=== PATIENT | male | born 1935 ===

== ENCOUNTER 2017-01-06 11:20 | Emergency (ER) | payer MEDICARE, BC, MEDICAID, OTHER ==
[2017-01-06] MEDS ORDERED: SODIUM CHLORIDE 0.9% 500 ML 500 ML IV ONE (12:17)
[2017-01-06] MEDS ORDERED: SODIUM CHLORIDE 0.9% FLUSH 10 ML SOL IV PRN (12:21)
[2017-01-06 12:50] VITALS: TEMP 96.7
[2017-01-06 12:50] LABS: ALBUMIN 2.9 gm/dl (3.4-5.0); CALCIUM 8.2 mg/dl (8.5-10.1); POTASSIUM 4.4 mMol/L (3.5-5.1)
[2017-01-06 12:55] LABS: BASOPHILS % (AUTO) 1 % (0-3); EOSINOPHILS % (AUTO) 5 % (0-9); HEMATOCRIT 28 % (39-53); MEAN CORPUSCULAR HGB CONC 34.3 gm/dl (32.0-36.0); MEAN CORPUSCULAR VOLUME 82 fL (80-100); MONOCYTES % (AUTO) 7.7 % (0-12); NEUTROPHILS % (AUTO) 67.2 % (37-80)
[2017-01-06 13:22] VITALS: BP 122/61; PULSE 63; RESP 21; O2SAT 99
== END 2017-01-06 15:04 | DRG 605 ==
LOC: ED 11:20
DX: S00.83XA Contusion of other part of head, initial encounter (principal); N19 Unspecified kidney failure; I11.0 Hypertensive heart disease with heart failure; I50.9 Heart failure, unspecified; W19.XXXA Unspecified fall, initial encounter
CPT/HCPCS: 36415; 70450; 72125; 72131; 80053; 83880; 85025; 93005; 96365; 99282; 99285

== ENCOUNTER 2017-01-09 18:08 | Emergency (ER) | payer MEDICARE, BC, MEDICAID, OTHER ==
[2017-01-09 19:12] VITALS: RESP 16
[2017-01-09 19:31] VITALS: TEMP 95.6
[2017-01-09 19:37] VITALS: BP 113/61; PULSE 54; O2SAT 97
== END 2017-01-09 20:19 | DRG 605 ==
LOC: ED 18:08
DX: S01.01XA Laceration without foreign body of scalp, initial encounter (principal); S09.90XA Unspecified injury of head, initial encounter; W18.30XA Fall on same level, unspecified, initial encounter
CPT/HCPCS: 12001; 70450; 72125; 99285

== ENCOUNTER 2017-02-11 12:16 | Emergency (ER) | payer MEDICARE, BC, MEDICAID, OTHER ==
[2017-02-11 13:13] VITALS: TEMP 97.4; O2SAT 100
[2017-02-11 13:48] LABS: HEMATOCRIT 28 % (39-53); MEAN CORPUSCULAR HGB CONC 34.6 gm/dl (32.0-36.0); MEAN CORPUSCULAR VOLUME 82 fL (80-100)
[2017-02-11 13:50] LABS: CALCIUM 8.3 mg/dl (8.5-10.1); POTASSIUM 4.3 mMol/L (3.5-5.1)
[2017-02-11 14:16] LABS: BASOPHILS % (MANUAL) 0 % (0-3); EOSINOPHILS % (MANUAL) 12 % (0-9); LYMPHOCYTES % (MANUAL) 20 % (10-50)
[2017-02-11 14:17] LABS: ANISOCYTOSIS SLIGHT AMT; OVALOCYTES PRESENT
[2017-02-11 14:42] LABS: APPEARANCE,URINE Clear; BILIRUBIN,URINE NEGATIVE (NEGATIVE); COLOR,URINE Yellow; GLUCOSE, URINE (UA) NEGATIVE (NEGATIVE); KETONES,URINE NEGATIVE (NEGATIVE); LEUKOCYTE ESTERASE ,URINE TRACE (NEGATIVE); NITRATE,URINE NEGATIVE (NEGATIVE); OCCULT BLOOD,URINE TRACE INTACT (NEG-TRACE); UROBILINOGEN,URINE 0.2 (0.2-1.0 EU)
[2017-02-11 14:54] LABS: RBC,URINE 0-1 (0-3AV/HPF); WBC,URINE 0-4 (0-5AV/HPF)
[2017-02-11 15:23] VITALS: BP 122/61; PULSE 59; RESP 18
== END 2017-02-11 14:30 | DRG 882 ==
LOC: ED 12:16
DX: F43.24 Adjustment disorder with disturbance of conduct (principal)
CPT/HCPCS: 80048; 81001; 85007; 85027; 99283

== ENCOUNTER 2017-02-20 21:27 | Emergency (ER) | payer MEDICARE, BC, MEDICAID, OTHER ==
[2017-02-20 21:39] VITALS: TEMP 97.3
[2017-02-20] MEDS: ACETAMINOPHEN 325 MG PO ONE (22:05)
[2017-02-20] MEDS ORDERED: ACETAMINOPHEN 325 MG ONE (22:05)
[2017-02-20 22:23] LABS: BASOPHILS % (AUTO) 1 % (0-3); EOSINOPHILS % (AUTO) 10 % (0-9); HEMATOCRIT 27 % (39-53); MEAN CORPUSCULAR HGB CONC 33.5 gm/dl (32.0-36.0); MONOCYTES % (AUTO) 6.9 % (0-12); NEUTROPHILS % (AUTO) 57.6 % (37-80)
[2017-02-20 22:30] LABS: MEAN CORPUSCULAR VOLUME 81 fL (80-100)
[2017-02-20 22:34] LABS: CALCIUM 8.1 mg/dl (8.5-10.1); POTASSIUM 4.8 mMol/L (3.5-5.1)
[2017-02-20] MEDS: OXYCODONE HYDROCHLORIDE 10 MG TER PO SCH (23:00)
[2017-02-20] MEDS ORDERED: HYDROMORPHONE HCL 2 MG/ML 1 ML SOL ONE (23:07)
[2017-02-20] MEDS: HYDROMORPHONE HCL 2 MG/ML 1 ML SOL IM ONE (23:10)
[2017-02-20 23:33] VITALS: BP 114/62; PULSE 60; RESP 16; O2SAT 98
== END 2017-02-20 23:50 | DRG 93 ==
LOC: ED 21:27
DX: G89.29 Other chronic pain (principal); F32.9 Major depressive disorder, single episode, unspecified; M54.9 Dorsalgia, unspecified; R53.1 Weakness; F41.9 Anxiety disorder, unspecified
CPT/HCPCS: 36415; 80048; 85025; 93005; 96372; 99284; 99285; J1170

== ENCOUNTER 2017-08-20 19:16 | Inpatient (IN) | payer MEDICARE, BC, MEDICAID, OTHER ==
[2017-08-20 20:07] LABS: BASOPHILS % (AUTO) 1 % (0-3); EOSINOPHILS % (AUTO) 3 % (0-9); HEMATOCRIT 27 % (39-53); MEAN CORPUSCULAR HGB CONC 33.5 gm/dl (32.0-36.0); MEAN CORPUSCULAR VOLUME 89 fL (80-100); MONOCYTES % (AUTO) 5.6 % (0-12); NEUTROPHILS % (AUTO) 71.6 % (37-80)
[2017-08-20 20:07] LABS: APPEARANCE,URINE Clear; BILIRUBIN,URINE NEGATIVE (NEGATIVE); COLOR,URINE Yellow; GLUCOSE, URINE (UA) NEGATIVE (NEGATIVE); KETONES,URINE NEGATIVE (NEGATIVE); LEUKOCYTE ESTERASE ,URINE 1+ (NEGATIVE); NITRATE,URINE NEGATIVE (NEGATIVE); OCCULT BLOOD,URINE NEGATIVE (NEG-TRACE); UROBILINOGEN,URINE 0.2 (0.2-1.0 EU)
[2017-08-20 20:17] LABS: ALBUMIN 2.7 gm/dl (3.4-5.0); ALT 24 IU/L (14-63); CALCIUM 8.1 mg/dl (8.5-10.1); GLOM FILT RATE 14 mL/min (>60); POTASSIUM 5.2 mMol/L (3.5-5.1); SODIUM 146 mMol/L (136-145); THYROID STIMULATING HORMONE 3.539 uIU/ml (0.358-3.740)
[2017-08-20 20:17] LABS: RBC,URINE 0-1 (0-3AV/HPF); WBC,URINE 20-30 (0-5AV/HPF)
[2017-08-20] MEDS: SODIUM CHLORIDE 0.9% 1000ML 1,000 ML IV SCH (20:18)
[2017-08-20] MEDS ORDERED: LIDOCAINE HCL 1% MPF SOL ONE (21:27)
[2017-08-20] MEDS ORDERED: CEFTRIAXONE 1 GM PDS IM SCH (21:30)
[2017-08-20] MEDS: LACTULOSE 10 GM/15 ML SOL PO SCH (21:31)
[2017-08-20] MEDS ORDERED: CALCIUM CARBONATE 500 MG TAB PO PRN (22:45)
[2017-08-20] MEDS ORDERED: ACETAMINOPHEN PO PRN (22:45)
[2017-08-20] MEDS ORDERED: OXYCODONE HCL PO PRN (22:45)
[2017-08-21] MEDS: LEVOTHYROXINE SODIUM 50 MCG TAB PO SCH (06:13)
[2017-08-21 08:10] LABS: BASOPHILS % (AUTO) 1 % (0-3); EOSINOPHILS % (AUTO) 5 % (0-9); HEMATOCRIT 25 % (39-53); MEAN CORPUSCULAR VOLUME 89 fL (80-100); MONOCYTES % (AUTO) 6.7 % (0-12); NEUTROPHILS % (AUTO) 61.7 % (37-80)
[2017-08-21 08:27] LABS: CALCIUM 7.7 mg/dl (8.5-10.1); POTASSIUM 4.5 mMol/L (3.5-5.1)
[2017-08-21] MEDS: SODIUM CHLORIDE 0.9% 1000ML 1,000 ML IV SCH (09:00)
[2017-08-21] MEDS ORDERED: SENNOSIDES A AND B 8.6 MG TAB PO SCH (09:00)
[2017-08-21] MEDS ORDERED: PANTOPRAZOLE SODIUM 20 MG PO SCH (09:00)
[2017-08-21] MEDS: LACTULOSE 10 GM/15 ML SOL PO SCH (09:30)
[2017-08-21] MEDS ORDERED: DEXTROSE/SALINE 0.45% 1,000 ML IV SCH (09:30)
[2017-08-21] MEDS: ASPIRIN 81 MG CHEWABLE CTB PO SCH (10:43)
[2017-08-21] MEDS: TAMSULOSIN HYDROCHLORIDE 0.4 MG CAP PO SCH (10:44)
[2017-08-21] MEDS: MAGNESIUM OXIDE 400 MG TAB PO SCH (10:44)
[2017-08-21] MEDS: MULTIVITAMIN2 1 EA TAB PO SCH (10:45)
[2017-08-21] MEDS: ATENOLOL 25 MG TAB PO SCH (10:45)
[2017-08-21] MEDS: OLANZAPINE 2.5 MG TAB PO SCH (10:46)
[2017-08-21] MEDS: CHOLECALCIFEROL 1,000 IU TAB PO SCH (10:46)
[2017-08-21] MEDS: SERTRALINE HYDROCHLORIDE 50 MG TAB PO SCH (10:46)
[2017-08-21] MEDS: SODIUM CHLORIDE 0.45% 1000 ML 1,000 ML IV SCH (11:45)
[2017-08-21] MEDS: PANTOPRAZOLE SODIUM 40 MG ECT PO SCH (14:00)
[2017-08-21] MEDS: CYANOCOBALAMIN 1000 MCG PO SCH (14:42)
[2017-08-21] MEDS: FINASTERIDE 5 MG PO SCH (14:43)
[2017-08-21] MEDS ORDERED: CEFTRIAXONE 1 GM PDS ONE (21:25)
[2017-08-21] MEDS ORDERED: SODIUM CHLORIDE 0.9% 100 ML 100 ML IV ONE (21:25)
[2017-08-21] MEDS: CEFTRIAXONE 1 GM PDS 1 GM in SODIUM CHLORIDE 0.9% 100 ML 100 ML IV SCH (21:30)
[2017-08-22] MEDS: SODIUM CHLORIDE 0.45% 1000 ML 1,000 ML IV SCH ×2 (00:19→16:11)
[2017-08-22] MEDS: ACETAMINOPHEN 325 MG PO PRN ×3 (02:10→22:37)
[2017-08-22] MEDS: LEVOTHYROXINE SODIUM 50 MCG TAB PO SCH (06:05)
[2017-08-22 07:17] LABS: CALCIUM 7.5 mg/dl (8.5-10.1); POTASSIUM 4.5 mMol/L (3.5-5.1)
[2017-08-22 07:34] LABS: BASOPHILS % (AUTO) 1 % (0-3); EOSINOPHILS % (AUTO) 5 % (0-9); HEMATOCRIT 22 % (39-53); MEAN CORPUSCULAR HGB CONC 34.6 gm/dl (32.0-36.0); MEAN CORPUSCULAR VOLUME 88 fL (80-100); MONOCYTES % (AUTO) 4.6 % (0-12); NEUTROPHILS % (AUTO) 67.7 % (37-80)
[2017-08-22] MEDS: MAGNESIUM OXIDE 400 MG TAB PO SCH (08:36)
[2017-08-22] MEDS: SERTRALINE HYDROCHLORIDE 50 MG TAB PO SCH (08:36)
[2017-08-22] MEDS: MULTIVITAMIN2 1 EA TAB PO SCH (08:36)
[2017-08-22] MEDS: CHOLECALCIFEROL 1,000 IU TAB PO SCH (08:36)
[2017-08-22] MEDS: ASPIRIN 81 MG CHEWABLE CTB PO SCH (08:36)
[2017-08-22] MEDS: PANTOPRAZOLE SODIUM 40 MG ECT PO SCH (08:36)
[2017-08-22] MEDS: OLANZAPINE 2.5 MG TAB PO SCH (08:36)
[2017-08-22] MEDS: TAMSULOSIN HYDROCHLORIDE 0.4 MG CAP PO SCH (08:36)
[2017-08-22] MEDS: ATENOLOL 25 MG TAB PO SCH (08:36)
[2017-08-22] MEDS: FINASTERIDE 5 MG PO SCH (08:37)
[2017-08-22] MEDS: CYANOCOBALAMIN 1000 MCG PO SCH (08:37)
[2017-08-22] MEDS: MORPHINE SULFATE 15 MG ER TAB PO SCH (09:22)
[2017-08-22] MEDS ORDERED: MORPHINE SULFATE 15 MG ER TAB PO SCH (16:00)
[2017-08-22] MEDS ORDERED: CEFTRIAXONE 1 GM PDS ONE (20:40)
[2017-08-22] MEDS ORDERED: SODIUM CHLORIDE 0.9% 100 ML 100 ML IV ONE (20:40)
[2017-08-22] MEDS: CEFTRIAXONE 1 GM PDS 1 GM in SODIUM CHLORIDE 0.9% 100 ML 100 ML IV SCH (21:02)
[2017-08-22 21:48] VITALS: PULSE 59
[2017-08-23] MEDS: LEVOTHYROXINE SODIUM 50 MCG TAB PO SCH (06:51)
[2017-08-23 07:06] LABS: BASOPHILS % (AUTO) 1 % (0-3); EOSINOPHILS % (AUTO) 4 % (0-9); HEMATOCRIT 23 % (39-53); MEAN CORPUSCULAR VOLUME 88 fL (80-100); MONOCYTES % (AUTO) 4.5 % (0-12)
[2017-08-23 07:17] LABS: CALCIUM 7.9 mg/dl (8.5-10.1); POTASSIUM 4.6 mMol/L (3.5-5.1)
[2017-08-23 07:39] VITALS: BP 114/43; RESP 16; TEMP 97.7; O2SAT 97
[2017-08-23] MEDS ORDERED: LEVOFLOXACIN 500 MG TAB PO SCH (08:00)
[2017-08-23] MEDS: MORPHINE SULFATE 15 MG ER TAB PO SCH (08:32)
[2017-08-23] MEDS ORDERED: CYANOCOBALAMIN 1000 MCG TAB PO SCH (09:00)
[2017-08-23] MEDS ORDERED: FINASTERIDE 5 MG TAB PO SCH (09:00)
== END 2017-08-23 11:10 | DRG 441 ==
LOC: ED 19:16 → UNDOADMIN 20:46 → ACUTE CARE 20:46
PROVIDERS: ADMIT Emergency Medicine; ATTEND Emergency Medicine
DX: K72.00 Acute and subacute hepatic failure without coma (principal); K76.7 Hepatorenal syndrome; N17.9 Acute kidney failure, unspecified; N39.0 Urinary tract infection, site not specified; L97.421 Non-pressure chronic ulcer of left heel and midfoot limited to breakdown of skin; I50.9 Heart failure, unspecified; E86.0 Dehydration; R53.1 Weakness; N18.9 Chronic kidney disease, unspecified; R91.8 Other nonspecific abnormal finding of lung field; D64.9 Anemia, unspecified; M54.9 Dorsalgia, unspecified; G89.29 Other chronic pain; E11.621 Type 2 diabetes mellitus with foot ulcer
CPT/HCPCS: 10060; 36415; 70450; 71010; 71250; 74150; 80048; 80053; 81001; 82140; 82550; 82962; 83735; 83880; 84443; 84484; 85025; 85610; 87088; 93005; 93012; 96365; 99070; 99221; 99232; 99285; J0696; A6232; J2001